=== PATIENT | male | born 1960 | race Caucasian/White ===

== ENCOUNTER → 2016-04-01 | Outpatient (CLI) | payer OTHER ==
--- NOTE | 2016-04-01 15:42 | DX ---
Right Clavicle, 2 Views, at 2:07 p.m. Clinical History: 55-year-old male with clavicular pain and history of a fall a few times within the last year. The patient also notices a "difference of protrusion" from the right to the left clavicle. Rule out mass of the sternoclavicular joint. ICD-10 Diagnostic Code: M89.8X1. Comparison Study: None. Findings: Bone mineralization is preserved. There is some mild osseous hypertrophy associated with th e right sternoclavicular joint, right first costochondral junction, and also involving the acromiocla vicular joint, where there is joint space narrowing and exuberant osteophytes along the caudal margin of the joint. The glenohumeral alignment is anatomic, and the visualized portions of the scapula and the right rib cage are unremarkable. Impression: Degenerative features associated with the AC joint, sternoclavicular joint, and the righ t first costochondral junction. If there is further clinical concern regarding the sternoclavicular joint, correlative CT imaging cou ld be considered.
== END ==
LOC: BMCIMAGING 14:05
PROVIDERS: ATTEND Internal Medicine
DX: M89.8X1 Other specified disorders of bone, shoulder (principal); M13.811 Other specified arthritis, right shoulder

== ENCOUNTER 2016-07-20 11:50 | Emergency (ER) | payer OTHER ==
[2016-07-20] MEDS ORDERED: LORazepam 2 MG/ML INJ ONE (12:15)
[2016-07-20] MEDS ORDERED: NS 1,000 ML IV ONE (12:20)
[2016-07-20] MEDS ORDERED: LORazepam 2 MG/ML INJ IVP ONE (12:20)
--- NOTE | 2016-07-20 12:21 | EDPHY ---
H & P Stated Complaint: Anxiety and palpitations for months;no SI, wants to see psychiatrist Source: Patient Exam Limitations: No limitations - Personal History Current Tetanus Diphtheria and Acellular Pertussis (TDAP): Yes - Medical/Surgical History Hx Asthma: No Hx Chronic Respiratory Disease: No Hx Diabetes: No Hx Cardiac Disease: No Hx Renal Disease: No Hx Cirrhosis: No Hx Alcoholism: No Hx HIV/AIDS: No Hx Splenectomy or Spleen Trauma: No Other PMH: MULTIPLE SPORTS INJURIES/PERIPHERAL NEUROPATHY. "neck problems". anxiety, palpitations. chronic pain - Social History Smoking Status: Never smoked HPI/ROS: CHIEF COMPLAINT: Anxiety, palpitations, concern for cervical surgical hardware HISTORY OF PRESENT ILLNESS: Patient is 3 complaints. The 1st is anxiety. He has a long history of anxiety and feels that has worsened over the past year due to "warzone type stress levels." He says that he has gone through multiple stressors that have exacerbated his anxiety. This is despite taking Klonopin p.r.n.. He has no suicidal ideation or homicidal ideation. No suicidal attempt. He has seen his primary care physician for this and was prescribed Seroquel yesterday. His 2nd complaint is that after taking the cervical yesterday he developed palpitations. He also developed a mild headache. Then slept for 8 hours and felt better. He decreased the amount of the medication this morning but had the same symptoms. He had no chest pain prior to this. He has no chest pain at this time. He has no exertional chest pain or shortness of breath. No lower extremity erythema edema or pain. Third complaint is that his chronic neck pain has changed. He is requesting an x-ray to evaluate for placement of hardware that was performed last year. He has no radicular complaints in the arms or legs. He has no saddle anesthesia. No incontinence of bowel or bladder. No weakness of the extremities. No other associated complaints or modifying factors. REVIEW OF SYSTEMS: Ten systems reviewed and are negative unless otherwise noted in the HPI PERTINENT MEDICAL HISTORY: EXAMINATION General Appearance: Alert, no distress, anxious, pressured speech Head: normocephalic, atraumatic Eyes: Pupils equal and round, no conjunctival pallor or injection ENT, Mouth: Mucous membranes moist. Uvula midline. Airway widely patent. Neck: Normal inspection, supple, non-tender. Trachea midline. Respiratory: Lungs are clear to auscultation wheezing, rhonchi or crackles. Cardiovascular: Tachycardic rate. Regular rhythm. Gastrointestinal: Abdomen is soft and nontender Back: non-tender, no bony abnormalities Neurological: GCS 15. A&O, nonfocal, normal gait Skin: Warm and dry, no rash Extremities: Nontender, no pedal edema Psychiatric: Anxious, pressured speech. No suicidal ideation. No homicidal ideation. DIFFERENTIAL DIAGNOSES: Including but not limited to anxiety reaction, stress palpitations, adverse drug reaction, chronic neck pain MDM: 12:20 p.m. Anxiety with some palpitations after taking seroquel over the past 2 days. No psychosis. No chest pain. Vital signs are stable with mild tachycardia occasionally. Not suicidal. Not homicidal. He is not encephalopathic. I have ordered Ativan, laboratory studies, EKG and chest x-ray. 1:30 p.m. Patient is feeling better on Ativan. He is resting comfortably. Laboratory studies are within normal limits. X-rays are pending at this time. 2:50 p.m. Anxiety reaction significantly improved on Ativan. He is not suicidal. He is not homicidal. Troponin is negative. He has not had any chest pain, but he did have palpitations that I feel are likely related to the medication that he was started on yesterday. It is only happened with 2 doses of medication. Recommend he see this medication until discussing further with his primary care physician or psychiatrist. He wants to be referred to a psychiatrist for his anxiety. We have asked [facility] to visit with him to provide outpatient resources. He will be discharged home with hydroxyzine and instructions to follow up with the above physicians. He is comfortable with this plan and discharged home stable condition, neuro intact, not suicidal, not homicidal. SUPERVISION: This patient was independently evaluated without direct examination by the attending physician. Case was discussed with attending physician. (Ronnie Zazueta) Constitutional: Initial Vital Signs Temperature (C) 97.9 F 07/20/16 11:52 Heart Rate 95 07/20/16 11:52 Respiratory Rate 20 07/20/16 11:52 Blood Pressure 138/97 H 07/20/16 11:52 O2 Sat (%) 98 07/20/16 11:52 O2 Delivery Mode Room Air Allergies/Adverse Reactions: gabapentin [From Neurontin] Allergy (Severe, Verified 07/20/16 11:55) throat swells up ciprofloxacin HCl [From Cipro] Allergy (Unknown, Verified 07/20/16 11:55) Home Medications: Medication Instructions Recorded Hydrocodone 10/07/15 clonazePAM [Klonopin (*)] 1 - 2 tab PO BID #30 tab 10/07/15 Losartan Potassium [Cozaar 50 mg 50 mg PO 07/20/16 (*)] QUEtiapine FUMARATE [Seroquel 100 100 mg PO DAILY 07/20/16 mg (*)] hydrOXYzine HCL [Hydroxyzine HCl] 50 mg PO Q6-8PRN PRN #20 tablet 07/20/16 Medical Decision Making - Diagnostics EKG Interpretation: EKG: Complete interpretation has been separately recorded in the [facility] archive. Summary impression: Bifascicular block (Nathan Soto) Imaging Results: Imaging Impressions Chest X-Ray 07/20/16 12:19 Impression: Normal chest x-ray. Cervical Spine X-Ray 07/20/16 12:34 Impression: 1. Anterior cervical fusion from C3 through C5 in good position and alignment. 2. No soft tissue abnormality. - Data Points Laboratory Results: Laboratory Results 07/20/16 12:10 07/20/16 12:10 07/20/16 07/20/16 12:10 12:10 WBC 7.14 10^3/uL 10^3/uL (3.80-9.50) RBC 4.78 10^6/uL 10^6/uL (4.40-6.38) Hgb 15.9 g/dL g/dL (13.7-17.5) Hct 43.7 % % (40.0-51.0) MCV 91.4 fL fL (81.5-99.8) MCH 33.3 pg pg (27.9-34.1) MCHC 36.4 g/dL g/dL (32.4-36.7) RDW 12.6 % % (11.5-15.2) Plt Count 253 10^3/uL 10^3/uL (150-400) MPV 9.2 fL fL (8.7-11.7) Neut % (Auto) 69.8 % % (39.3-74.2) Lymph % (Auto) 22.1 % % (15.0-45.0) [place] % (Auto) 5.9 % % (4.5-13.0) Eos % (Auto) 1.4 % % (0.6-7.6) Baso % (Auto) 0.4 % % (0.3-1.7) Nucleat RBC Rel Count 0.0 % % (0.0-0.2) Absolute Neuts (auto) 4.98 10^3/uL 10^3/uL (1.70-6.50) Absolute Lymphs (auto) 1.58 10^3/uL 10^3/uL (1.00-3.00) Absolute Monos (auto) 0.42 10^3/uL 10^3/uL (0.30-0.80) Absolute Eos (auto) 0.10 10^3/uL 10^3/uL (0.03-0.40) Absolute Basos (auto) 0.03 10^3/uL 10^3/uL (0.02-0.10) Absolute Nucleated RBC 0.00 10^3/uL 10^3/uL (0-0.01) Immature Gran % 0.4 % % (0.0-1.1) Immature Gran # 0.03 10^3/uL 10^3/uL (0.00-0.10) Sodium 142 mEq/L mEq/L (134-144) Potassium 4.1 mEq/L mEq/L (3.5-5.2) Chloride 102 mEq/L mEq/L (97-110) Carbon Dioxide 28 mEq/l mEq/l (22-31) Anion Gap 12 mEq/L mEq/L (8-16) BUN 20 mg/dL mg/dL (7-23) Creatinine 1.0 mg/dL mg/dL (0.7-1.3) Estimated GFR > 60 Glucose 102 mg/dL H mg/dL (70-100) Calcium 10.0 mg/dL mg/dL (8.5-10.4) Magnesium 2.0 mg/dL mg/dL (1.6-2.3) Total Bilirubin 1.0 mg/dL mg/dL (0.1-1.4) Conjugated Bilirubin 0.4 mg/dL mg/dL (0.0-0.5) Unconjugated Bilirubin 0.6 mg/dL mg/dL (0.0-1.1) AST 36 IU/L IU/L (17-59) ALT 28 IU/L IU/L (21-72) Alkaline Phosphatase 56 IU/L IU/L (38-126) Troponin I < 0.012 ng/mL ng/mL (0-0.034) Total Protein 7.0 g/dL g/dL (6.3-8.2) Albumin 4.7 g/dL g/dL (3.5-5.0) TSH 1.480 uIU/mL uIU/mL (0.465-4.680) Medications Given: Discontinued Medications Sodium Chloride (Ns) 1,000 mls @ 0 mls/hr IV ONCE ONE PRN Reason: Wide Open Stop: 07/20/16 12:21 Last Admin: 07/20/16 12:33 Dose: 1,000 mls Lorazepam (Ativan Injection) 2 mg IVP EDNOW ONE Stop: 07/20/16 12:21 Last Admin: 07/20/16 12:33 Dose: 2 mg Departure - Departure Disposition: Home, Routine, Self-Care Clinical Impression: Anxiety, Adverse drug reaction Condition: Good Instructions: Anxiety (ED) Additional Instructions: Medications as discussed. Follow up with primary care physician and psychiatrist. Hold the seroquel until discussing with the prescribing physician Referrals: ALONZO SERNA [Other] - As per Instructions Alin Nassar MD [[facility] [place] Primary Care Provider] - As per Instructions [facility] [Clinic] - As per Instructions Prescriptions: hydrOXYzine HCL [Hydroxyzine HCl] 50 mg PO Q6-8PRN PRN #20 tablet PRN Reason: Itching
[2016-07-20 12:23] LABS: % IMMATURE GRANULYOCYTES 0.4 % (0.0-1.1); ABSOLUTE IMMATURE GRANULOCYTES 0.03 10^3/uL (0.00-0.10); ADD DIFF? NO; ADD MORPH? NO; ADD SCAN? NO; ATYPICAL LYMPHOCYTE FLAG 10 (0-99); FRAGMENT RBC FLAG 0 (0-99); HEMATOCRIT 43.7 % (40.0-51.0); HEMOGLOBIN 15.9 g/dL (13.7-17.5); LEFT SHIFT FLG 0 (0-99); LIPEMIA HEMOLYSIS FLAG 90 (0-99); MEAN CELL HEMOGLOBIN 33.3 pg (27.9-34.1); MEAN CELL HEMOGLOBIN CONCENTR. 36.4 g/dL (32.4-36.7); MEAN CELL VOLUME 91.4 fL (81.5-99.8); MEAN PLATELET VOLUME 9.2 fL (8.7-11.7); PLATELET CLUMPS FLAG 0 (0-99); PLATELET COUNT 253 10^3/uL (150-400); RED BLOOD CELL COUNT 4.78 10^6/uL (4.40-6.38); RED CELL DISTRIBUTION WIDTH 12.6 % (11.5-15.2)
--- NOTE | 2016-07-20 12:27 | CPEKG ---
Heart Rate: 96 RR Interval: 625 P-R Interval: 152 QRSD Interval: 142 QT Interval: 376 QTC Interval: 476 P [place]: 81 QRS [place]: 96 T Wave [place]: 27 EKG Severity - ABNORMAL ECG - EKG Impression: SINUS RHYTHM EKG Impression: RBBB AND LPFB Electronically Signed By: Nathan Soto 20-Jul-2016 14:36:07
[2016-07-20 12:38] LABS: ALANINE AMINOTRANSFERASE 28 IU/L (21-72); ALBUMIN 4.7 g/dL (3.5-5.0); ALKALINE PHOSPHATASE 56 IU/L (38-126); ANION GAP 12 mEq/L (8-16); ASPARTATE AMINOTRANSFERASE 36 IU/L (17-59); BILIRUBIN-CONJUGATED 0.4 mg/dL (0.0-0.5); BILIRUBIN-UNCONJUGATED 0.6 mg/dL (0.0-1.1); CARBON DIOXIDE 28 mEq/l (22-31); CHLORIDE 102 mEq/L (97-110); GLOMERULAR FILTRATION RATE > 60; GLUCOSE 102 mg/dL (70-100); POTASSIUM 4.1 mEq/L (3.5-5.2); SODIUM 142 mEq/L (134-144)
[2016-07-20 12:49] LABS: TROPONIN I < 0.012 ng/mL (0-0.034)
[2016-07-20 15:19] VITALS: BP 129/79; PULSE 70; RESP 14; TEMP 98.4; O2SAT 94
== END 2016-07-20 15:18 | disposition home or self-care (01) ==
DX: F41.9 Anxiety disorder, unspecified (principal); T42.4X5A Adverse effect of benzodiazepines, initial encounter
CPT/HCPCS: 96374; J2060

== ENCOUNTER 2017-07-07 12:47 | Emergency (ER) | payer MEDICAID, OTHER ==
--- NOTE | 2017-07-07 13:03 | CPEKG ---
Heart Rate: 92 RR Interval: 652 P-R Interval: 160 QRSD Interval: 142 QT Interval: 388 QTC Interval: 481 P [place]: 72 QRS [place]: 92 T Wave [place]: 26 EKG Severity - ABNORMAL ECG - EKG Impression: SINUS RHYTHM EKG Impression: RBBB AND LPFB Electronically Signed By: Nathan Soto 07-Jul-2017 14:38:34
--- NOTE | 2017-07-07 13:09 | EDPHY ---
H & P Stated Complaint: CP, lethargy, SOB on and off for months. Time Seen by Provider: 07/07/17 13:00 HPI/ROS: CHIEF COMPLAINT: Multiple complaints HISTORY OF PRESENT ILLNESS: The patient presents to the ED with complaints of multiple complaints including fatigue, chest pain, restlessness and anxiety. The patient has a complicated past medical history including chronic pain, significant loss of financial acid, lack of familial support and multiple vague somatic complaints. The patient reports he has been on a number of medications for depression anxiety over the years. His primary care provider is Dr. Alin Nassar. The patient recently began taking testosterone for a reported low testosterone of 250. REVIEW OF SYSTEMS: A comprehensive 10 point review of systems is otherwise negative aside from elements mentioned in the history of present illness. Source: Patient - Personal History Current Tetanus Diphtheria and Acellular Pertussis (TDAP): Yes - Medical/Surgical History Hx Asthma: No Hx Chronic Respiratory Disease: No Hx Diabetes: No Hx Cardiac Disease: No Hx Renal Disease: No Hx Cirrhosis: No Hx Alcoholism: No Hx HIV/AIDS: No Hx Splenectomy or Spleen Trauma: No Other PMH: MULTIPLE SPORTS INJURIES/PERIPHERAL NEUROPATHY. "neck problems". anxiety, palpitations. chronic pain - Social History Smoking Status: Never smoked - Physical Exam Exam: General Appearance: Alert, anxious, no acute distress Eyes: Pupils equal and round no pallor or injection ENT, Mouth: Mucous membranes moist Respiratory: There are no retractions, lungs are clear to auscultation Cardiovascular: Regular rate and rhythm Gastrointestinal: Abdomen is soft and nontender, no masses, bowel sounds normal Neurological: 5/5 strength all 4 extremities Skin: Warm and dry, no rashes Musculoskeletal: Neck is supple nontender Extremities: symmetrical, full range of motion Psychiatric: Endorses symptoms of mild anxiety and depression, denies suicidal or homicidal ideation Constitutional: Initial Vital Signs Temperature (C) 36.7 C 07/07/17 12:47 Heart Rate 78 07/07/17 12:47 Respiratory Rate 18 07/07/17 12:47 Blood Pressure 159/99 H 07/07/17 12:47 O2 Sat (%) 98 07/07/17 12:47 O2 Delivery Mode Room Air Allergies/Adverse Reactions: gabapentin [From Neurontin] Allergy (Severe, Verified 07/20/16 11:55) throat swells up ciprofloxacin HCl [From Cipro] Allergy (Unknown, Verified 07/20/16 11:55) Home Medications: Medication Instructions Recorded Hydrocodone 10/07/15 clonazePAM [Klonopin (*)] 1 - 2 tab PO BID #30 tab 10/07/15 Losartan Potassium [Cozaar 50 mg 50 mg PO 07/20/16 (*)] QUEtiapine FUMARATE [Seroquel 100 100 mg PO DAILY 07/20/16 mg (*)] hydrOXYzine HCL [Hydroxyzine HCl] 50 mg PO Q6-8PRN PRN #20 tablet 07/20/16 Medical Decision Making - Diagnostics EKG Interpretation: EKG: Complete interpretation has been separately recorded in the [facility] archive. Summary impression: Bifascicular block. Unchanged from prior EKG. ED Course/Re-evaluation: The patient has multiple complaints including chest pain and worsening anxiety. The patient's EKG demonstrates no evidence of ischemia and the patient's troponin is normal. The patient tells me he has no history of exertional chest pain or shortness of breath. In talking to the patient certainly seems as if his symptoms are related to anxiety and not a cardiac emergency. I have referred the patient to the outpatient psychiatric program here at [facility] as well as given him the contact number for [facility] and the walk-in clinic. I have encouraged him to continue to work with his primary care provider. Differential Diagnosis: Differential diagnosis considered includes acute coronary syndrome, pericarditis , anxiety, depression, psychosis - Data Points Laboratory Results: Laboratory Results 07/07/17 13:08 07/07/17 13:08 07/07/17 07/07/17 07/07/17 13:08 13:08 13:05 WBC 7.59 10^3/uL 10^3/uL (3.80-9.50) RBC 4.81 10^6/uL 10^6/uL (4.40-6.38) Hgb 15.5 g/dL g/dL (13.7-17.5) Hct 44.6 % % (40.0-51.0) MCV 92.7 fL fL (81.5-99.8) MCH 32.2 pg pg (27.9-34.1) MCHC 34.8 g/dL g/dL (32.4-36.7) RDW 12.7 % % (11.5-15.2) Plt Count 349 10^3/uL 10^3/uL (150-400) MPV 8.9 fL fL (8.7-11.7) Neut % (Auto) 47.0 % % (39.3-74.2) Lymph % (Auto) 39.5 % % (15.0-45.0) [place] % (Auto) 8.7 % % (4.5-13.0) Eos % (Auto) 3.8 % % (0.6-7.6) Baso % (Auto) 0.7 % % (0.3-1.7) Nucleat RBC Rel Count 0.0 % % (0.0-0.2) Absolute Neuts (auto) 3.57 10^3/uL 10^3/uL (1.70-6.50) Absolute Lymphs (auto) 3.00 10^3/uL 10^3/uL (1.00-3.00) Absolute Monos (auto) 0.66 10^3/uL 10^3/uL (0.30-0.80) Absolute Eos (auto) 0.29 10^3/uL 10^3/uL (0.03-0.40) Absolute Basos (auto) 0.05 10^3/uL 10^3/uL (0.02-0.10) Absolute Nucleated RBC 0.00 10^3/uL 10^3/uL (0-0.01) Immature Gran % 0.3 % % (0.0-1.1) Immature Gran # 0.02 10^3/uL 10^3/uL (0.00-0.10) Sodium 139 mEq/L mEq/L (135-145) Potassium 4.2 mEq/L mEq/L (3.5-5.2) Chloride 101 mEq/L mEq/L (97-110) Carbon Dioxide 26 mEq/l mEq/l (22-31) Anion Gap 12 mEq/L mEq/L (8-16) BUN 22 mg/dL mg/dL (7-23) Creatinine 1.1 mg/dL mg/dL (0.7-1.3) Estimated GFR > 60 Glucose 94 mg/dL mg/dL (70-100) Calcium 9.7 mg/dL mg/dL (8.5-10.4) Troponin I < 0.012 ng/mL ng/mL (0.000-0.034) Total Testosterone 365.0 ng/dL ng/dL (71.8-623.0) Departure - Departure Disposition: Home, Routine, Self-Care Clinical Impression: Anxiety, Chest pain Condition: Good Instructions: Anxiety (ED) Additional Instructions: 1. Please follow up with Dr. Nassar as scheduled. 2. I do recommend contacting [facility] or the intensive outpatient program at [facility] to establish care with a therapist. 3. Your cardiac testing is within normal limits. 4. Your testosterone level is now 365. Referrals: Alin Nassar MD [Primary Care Provider] - As per Instructions
[2017-07-07 13:12] LABS: PLATELET COUNT 349 10^3/uL (150-400)
[2017-07-07] MEDS ORDERED: IBUPROFEN 600 MG TAB PO ONE ×2 (15:05)
[2017-07-07 15:08] VITALS: BP 155/78
== END 2017-07-07 15:08 | disposition home or self-care (01) ==
DX: F41.9 Anxiety disorder, unspecified (principal); R07.9 Chest pain, unspecified

== ENCOUNTER 2017-11-13 12:59 | Emergency (ER) | payer MEDICAID ==
--- NOTE | 2017-11-13 15:09 | EDPHY ---
H & P Time Seen by Provider: 11/13/17 13:48 HPI/ROS: HPI Concern about high blood pressure. 57-year-old male on foot. He is very familiar to our emergency department. Please see previous visits and case management notes. He presents to the emergency department stating that he is concerned about his blood pressure and was initially demanding that he be admitted to the hospital. He also reports that he has been feeling very sleepy lately and this has been causing him to miss his outpatient appointments. He has been seen in our emergency department multiple times in the past for similar complaints and also involving chest pain and shortness of breath. He has had extensive workups which have all been unremarkable. He has recent negative troponins, unremarkable/unchanged EKGs and negative D-dimer. 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 He tells me that he had an appointment to see Dr. Nevin Carbajal at [facility] this morning which was set up as a follow-up for him from his most recent emergency department visit here. He did not make this appointment because he stated he was too tired. On my evaluation currently he is sitting upright working on his computer. He appears very comfortable. He is not in any distress but seems anxious. He also tells me that he has a prescription filled for Klonopin but he does not want to take this medication for his anxiety. I asked him if he wanted to see a behavioral health student services representative. He does not want to do this. He reports that he is seen such people in the past and they are unable to help him. He denies being suicidal or homicidal. ROS: Constitutional: No fever, no chills. No weakness. Eyes: No discharge. No changes in vision. ENT: No sore throat. No nasal congestion or rhinorrhea. Respiratory: No cough. As above. Cardiac: As above, no palpitations. Gastrointestinal: No abdominal pain, no vomiting, no diarrhea. Genitourinary: No hematuria. No dysuria or increased frequency with urination. Musculoskeletal: No back pain. No neck pain. No myalgias or arthralgias. Skin: No rashes. Neurological: No headache. No focal weakness or altered sensation. Past medical history: Multiple orthopedic injuries, peripheral neuropathy, anxiety, palpitations. Social history: Nonsmoker. States he has a girlfriend. States he has been living in his car and staying at her house sometimes. Denies alcohol. Denies IV drugs and street drugs. Physical Exam: General Appearance: Alert, no distress. Intermittent episodes of manic type behavior. This patient is responding to questions appropriately and in full sentences. This patient appears well-hydrated and well-nourished. Eyes: Pupils equal and round no pallor or injection. No lid edema, erythema or injection. Respiratory: There are no retractions, lungs are clear to auscultation with good air movement bilaterally. No tachypnea. Cardiovascular: Regular rate and rhythm. No murmur. Neurological: Motor sensory function is grossly intact. Cranial nerves are normal. Gait is normal. Skin: Warm and dry, no rashes. Musculoskeletal: Neck is supple and nontender. Extremities are symmetrical. All joints range without pain or impingement. Psychiatric: No agitation. No depression. Database: EKG: EKG time is 2:49 p.m.; EKG shows a sinus rhythm with underlying right bundle branch block and with a ventricular rate of 75. The PA, QT intervals are within normal limits. There are no ST-T wave changes indicative of ischemic or injury pattern. This EKG was compared to an EKG from previous visit shows no significant change. Interpreted by me. Imaging: Procedures: Emergency department course: Triage vital signs reviewed and are normal. Room air pulse oximetry is 97%. This patient has been provided excellent follow-up which she is not adhered to. I spoke with him in the company of his nurse as well as share in our lead case manager. I do not feel he requires a significant emergency department workup at this time. I feel that acute coronary syndrome, pulmonary embolism, pneumothorax, pericarditis, aortic dissection or other emergent cardiopulmonary condition is very unlikely based on his physical exam and review of his prior records. We were able to contact [facility]. They verified that he did have an appointment earlier today and missed that appointment. He has a new appointment rescheduled for FridayNovember 18. He does have an appointment with his primary care physician Dr. Nassar today at 4:30 p.m.. I stressed the importance that he make it to this appointment. I explained to him that he did not meet criteria for admission to the hospital. Return to emergency department precautions were reviewed with him. All of his questions were answered. He was discharged from our emergency department. He is to go to his appointment with his primary care physician, Dr. Nassar at 4 :30 p.m. Today. Differential Diagnosis: The differential diagnosis on this patient includes but is not limited to anxiety, emi. Hypertensive emergency, hypertensive urgency, acute coronary syndrome, pulmonary embolism, aortic dissection, thyroid storm, pheochromocytoma unlikely. This represents a partial list of diagnoses considered. These considerations are based on history, physical exam, past history, reassessment and diagnostic testing. Smoking Status: Never smoked Constitutional: Initial Vital Signs Temperature (C) 36.6 C 11/13/17 13:09 Heart Rate 70 11/13/17 13:09 Respiratory Rate 16 11/13/17 13:09 Blood Pressure 125/71 H 11/13/17 13:09 O2 Sat (%) 97 11/13/17 13:09 O2 Delivery Mode Room Air Allergies/Adverse Reactions: gabapentin [From Neurontin] Allergy (Severe, Verified 11/13/17 13:08) throat swells up ciprofloxacin HCl [From Cipro] Allergy (Unknown, Verified 11/13/17 13:08) Home Medications: Medication Instructions Recorded clonazePAM [Klonopin (*)] 1 - 2 tab PO BID #30 tab 10/07/15 Losartan Potassium [Cozaar 50 mg 50 mg PO 07/20/16 (*)] Advil 11/13/17 Tylenol 11/13/17 Departure - Departure Disposition: Home, Routine, Self-Care Clinical Impression: Anxiety Condition: Good Instructions: Anxiety (ED) Additional Instructions: Read and follow provided instructions. Follow-up with your primary care Dr. Nassar, today as scheduled at 4:30 p.m.. Please do not missed this appointment. Please follow-up as your scheduled with your casting and curing operator, Dr. Carbajal, next FridayNovember 18. Return to the emergency department for worsening symptoms or other serious concerns. Referrals: Alin Nassar MD [Primary Care Provider] - As per Instructions
--- NOTE | 2017-11-13 15:19 | CPEKG ---
Test Reason : OPEN Blood Pressure : / mmHG Vent. Rate : 075 BPM Atrial Rate : 081 BPM P-R Int : 170 ms QRS Dur : 148 ms QT Int : 416 ms P-R-T Axes : 074 088 020 degrees QTc Int : 465 ms Sinus rhythm Right bundle branch block Confirmed by Reynold Koehler ([id number]) on 11/13/2017 3:18:58 PM Referred By: Confirmed By:Reynold Koehler
[2017-11-13 15:39] VITALS: BP 120/72
--- NOTE | 2017-11-13 17:51 | ASMTCMCOM ---
CM Note CM Note Notes: Pt presented to the ED for difficulty breathing, fatigue. 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 Spoke w/EVELYN Mae for Dr Carbajal, she states that when she interacted w/pt this afternoon, the pt kept said "I don't feel like I am going to live until Friday" and that he was in the waiting room "writing out his will and last testament." Pt was difficult to redirect and was recommended that he present to the ED if he felt he was experiencing life-threatening symptoms. Pt is hyperverbal, difficult to redirect, tangential, and somewhat making delusional statements. Pt making statements about expecting to be admitted to the hospital, various hardships in his personal life that have contributed to him not being able to make his appts, etc. Pt states he has been living out of his car but staying with his girlfriend sometimes. Pt states he has seen mental health providers in the past but does not want to take his medication for anxiety or have a mental health provider see him in the ED today. Pt has an appt with his PCP Dr Alin Nassar at 4:30pm today. Pt states he is planning on going to the appt after being discharged from the ED. This CM called Dr Nassar's office ([phone]) to relay information re:pt's ED visit today, etc; left a voicemail for his Evs Manager but have not heard back. Date Signed: 11/13/2017 05:50 PM Electronically Signed By:Kim Carpenter RN
--- NOTE | 2017-11-14 14:08 | ASMTCMCOM ---
CM Note CM Note Notes: Followed up w/pt's PCP Dr Alin Nassar 's office ([phone]) and spoke w/Emily. Pt did not make it on time to his appt yesterday. Pt arrived [address] Nassar was unable to see him. Pt said he would return today to see the RN but has not shown up yet. Emily also said pt recently was enrolled in Medicaid and since Dr Nassar doesn't accept Medicaid, they are figuring out whether pt will continue to be a pt of Dr Nassar's or if he will be referred to a new PCP. Date Signed: 11/14/2017 02:07 PM Electronically Signed By:Kim Carpenter RN
== END 2017-11-13 15:38 | disposition home or self-care (01) ==
DX: F41.9 Anxiety disorder, unspecified (principal); I45.10 Unspecified right bundle-branch block

== ENCOUNTER 2017-11-23 22:36 | Emergency (ER) | payer MEDICAID ==
--- NOTE | 2017-11-23 23:31 | EDPHY ---
H & P Stated Complaint: SOB, heart pounding, cough Time Seen by Provider: 11/23/17 22:51 HPI/ROS: Chief Complaint: Heart pounding, shortness of breath HPI: 57-year-old male very well known to this emergency department presenting this evening complaining of his heart pounding and some shortness of breath. Patient has been seen here multiple times recently and over the years with similar symptoms. For the last 9 months he has been having episodes of heart pounding and shortness of breath. He says his exercise tolerance has decreased. He was seen by Cardiology a week ago and says that he failed a stress test last week and they are arranging for a CT coronary calcium study. He has not been able to get this performed yet. He said his symptoms are the same as always. Presenting tonight because he is frustrated that he is not able to get any was further testing done. Denies any new symptoms. No substernal chest pain. No lightheadedness. No fainting. No fevers or chills. No cough. I have reviewed his records knee has had extensive workups and evaluations here. Patient states that he does not think that this is his anxiety. He states he does not feel anxious. ROS: 10 systems were reviewed and were negative except those elements noted in the HPI. PMH: Chronic neck pain, anxiety Social History: No smoking, no alcohol, no recreational drug use Family History: non-contributory Physical Exam: Gen: Awake, Alert, anxious, mildly pressured speech HEENT: Nose: no rhinorrhea Eyes: PERRLA, EOMI Mouth: Moist mucosa Neck: Supple, no JVD Chest: nontender, lungs clear to auscultation Heart: S1, S2 normal, no murmur Abd: Soft, non-tender, no guarding Back: no CVA tenderness, no midline tenderness Ext: no edema, non-tender Skin: no rash Neuro: CN II-XII intact, Sensation grossly intact, Strength 5/5 in bilateral upper and lower extremities - Personal History Current Tetanus Diphtheria and Acellular Pertussis (TDAP): Yes - Medical/Surgical History Hx Asthma: No Hx Chronic Respiratory Disease: No Hx Diabetes: No Hx Cardiac Disease: No Hx Renal Disease: No Hx Cirrhosis: No Hx Alcoholism: No Hx HIV/AIDS: No Hx Splenectomy or Spleen Trauma: No Other PMH: MULTIPLE SPORTS INJURIES/PERIPHERAL NEUROPATHY. "neck problems". anxiety, palpitations. chronic pain - Social History Smoking Status: Never smoked Constitutional: Initial Vital Signs Temperature (C) 36.4 C 11/23/17 22:38 Heart Rate 76 11/23/17 22:38 Respiratory Rate 20 11/23/17 22:38 Blood Pressure 155/103 H 11/23/17 22:38 O2 Sat (%) 99 11/23/17 22:38 O2 Delivery Mode Room Air Allergies/Adverse Reactions: gabapentin [From Neurontin] Allergy (Severe, Verified 11/23/17 22:38) throat swells up ciprofloxacin HCl [From Cipro] Allergy (Unknown, Verified 11/23/17 22:38) Home Medications: Medication Instructions Recorded clonazePAM [Klonopin (*)] 1 - 2 tab PO BID #30 tab 10/07/15 Losartan Potassium [Cozaar 50 mg 50 mg PO 07/20/16 (*)] Advil 11/13/17 Tylenol 11/13/17 Medical Decision Making - Diagnostics EKG Interpretation: ECG time 10:45 p.m., sinus rhythm with a rate of 81, is a right bundle branch block with a left posterior fascicular block. There is a single PVC. No acute ST or T-wave changes. ECG is unchanged from 11/13/2017. ED Course/Re-evaluation: 57-year-old male presenting complaining of his heart pounding and shortness of breath. His ECG is unchanged from prior. Does not have any chest pain. No fainting. His symptoms are similar to those he has had multiple times in multiple presentations in the past. He is in the process of a cardiology workup and is scheduled for a calcium test. He says he failed a stress test however rather than referral for cardiac catheterization they have ordered a calcium test which leads me to believe that he may have failed the test for reasons other than evidence of ischemia. I do not see any evidence of acute IA at this time. He has a insole rounder to follow up with. We have discussed at length. His symptoms are similar to multiple presentations in the past. Will discharge with follow up with insole rounder as scheduled. Departure - Departure Disposition: Home, Routine, Self-Care Clinical Impression: Palpitations, Dyspnea Condition: Good Instructions: Dyspnea (ED) Additional Instructions: Follow up with her insole rounder in 1-2 days for further evaluation. Return to the emergency department for worsening severe chest pain, worsening shortness of breath, fainting, or any other concerns. Referrals: Nevin Carbajal MD [Medical Doctor] - As per Instructions
[2017-11-24 00:29] VITALS: BP 112/80
--- NOTE | 2017-11-24 01:44 | CPEKG ---
Test Reason : OPEN Blood Pressure : / mmHG Vent. Rate : 081 BPM Atrial Rate : 088 BPM P-R Int : 157 ms QRS Dur : 149 ms QT Int : 411 ms P-R-T Axes : 074 092 019 degrees QTc Int : 477 ms Sinus arrhythmia Ventricular premature complex RBBB and LPFB Confirmed by Juaquin Perez ([id number]) on 11/24/2017 1:44:00 AM Referred By: Confirmed By:Juaquin Perez
== END 2017-11-24 00:15 | disposition home or self-care (01) ==
DX: R00.2 Palpitations (principal); R06.00 Dyspnea, unspecified

== ENCOUNTER → 2017-12-03 | Outpatient (CLI) | payer MEDICAID ==
[~2017-12-03] MED LIST: IOPAMIDOL (ISOVUE 370) 100 ML BTL IV ONE
== END ==
LOC: FIMAGING 09:39
PROVIDERS: ATTEND Internal Medicine Cardiovascular Disease
DX: I25.10 Atherosclerotic heart disease of native coronary artery without angina pectoris (principal)
CPT/HCPCS: Q9967